=== PATIENT | male | born 1955 | race Caucasian/White ===

== ENCOUNTER 2017-08-12 03:23 | Inpatient (IN) | payer MEDICARE, OTHER ==
[2017-08-12 03:55] LABS: #Basophils 0.1 thou/uL (0.0-0.2); #Lymphocytes 1.3 thou/uL (1.20-3.40); #Monocytes 1.2 thou/uL (0.11-0.59); #Neutrophils 7.7 thou/uL (1.40-6.50); %Basophils 0.7 % (0.0-1.0); %Eosinophils 0.1 % (0.0-10.0); %Lymphocytes 12.6 % (21.0-51.0); %Neutrophils 74.6 % (42.0-75.0); Hemoglobin 14.8 g/dL (14.0-18.0); Mean Corpuscular HGB CONC 34.4 g/dL (32.0-36.0); Mean Corpuscular Hemoglobin 30.8 pg (27.0-31.0); Mean Corpuscular Volume 89.5 fl (80.0-94.0); Mean Platelet Volume 8.5 fL (7.4-10.4); Platelet Count 164 thou/uL (130-400); White Blood Cell (WBC) Count 10.3 thou/uL (4.8-10.8)
[2017-08-12 04:09] LABS: ALT (SGPT) 18 U/L (8-55); AST (SGOT) 22 U/L (5-34); Albumin 4.3 g/dL (3.4-4.8); Alkaline Phosphatase 64 U/L (40-150); Anion Gap 17 mmol/L (10-20); BUN (Urea Nitrogen) 17 mg/dL (8.4-25.7); Bilirubin, Total 0.4 mg/dL (0.2-1.2); Calc. Creatinine Clearance 0 mL/min (70-130); Calcium 9.7 mg/dL (7.8-10.44); Carbon Dioxide 24 mmol/L (23-31); Chloride 99 mmol/L (98-107); Estimated GFR-MDRD 71; Globulin 2.9 g/dL (2.4-3.5); Glucose 203 mg/dL (80-115); Potassium 3.9 mmol/L (3.5-5.1); Protein, Total 7.2 g/dL (5.8-8.1); Sodium 136 mmol/L (136-145)
[2017-08-12] MEDS ORDERED: Albuterol Sulfate 2.5 mg/3 ml Neb ONE ×2 (04:10)
[2017-08-12 04:29] LABS: Actual Bicarbonate (HCO3a) 22.7 mEq/L (22-26); Base Excess (BEa) -1.5 mEq/L (0 (+/-) 2.5); CO2 Tension 36.8 mmHg (35.0-45.0); Calcium, Ionized 1.2 mmol/L (1.12-1.30); Hematocrit-ABG 47.1 % (42.0-52.0); Hemoglobin (Hb) 14.7 g/dL (14.0-18.0); O2 Tension (PaO2) 113.6 mmHg (80.0-100.0); pH, Arterial 7.41 (7.35-7.45)
[2017-08-12 04:30] LABS: Analyzer IN Cardio ER; Puncture Site RRA
[2017-08-12] MEDS ORDERED: cefTRIAXone\\ROCEPHIN 2 GM in Sodium Chloride 0.9% 100 ML IVPB SCH (04:30)
[2017-08-12] MEDS ORDERED: Azithromycin 500 MG in Sodium Chloride 0.9% 250 ML 250 ML IVPB SCH (04:30)
[2017-08-12 05:23] LABS: CKMB 2.2 ng/mL (0-6.6); Troponin I 0.025 ng/mL (< 0.028)
[2017-08-12 07:19] LABS: Troponin I 0.034 ng/mL (< 0.028)
[2017-08-12] MEDS ORDERED: Dextrose 5% in Water 1,000 ML IV PRN (07:36)
[2017-08-12] MEDS ORDERED: Dextrose 50% Abboject 50 ML SYRINGE SLOW IVP PRN (07:36)
[2017-08-12] MEDS ORDERED: AZITHROMYCIN IVPB SCH (07:45)
[2017-08-12] MEDS ORDERED: methylPREDNISolone Sod Succ/PF 125 MG/2 ML VIAL IVP SCH (07:45)
--- NOTE | 2017-08-12 08:20 | RAD ---
TWO AP VIEWS OF THE CHEST: INDICATION: Dyspnea. COPD exacerbation. COMPARISON: PA and lateral of the chest dated 11/23/16. FINDINGS: COPD change is stable. No focal consolidation, pleural effusion, or pneumothorax is evident. No acu te osseous abnormality is evident. IMPRESSION: Stable chronic obstructive pulmonary disease change. POS: [facility]
[2017-08-12] MEDS ORDERED: Non-Formulary Item 1 EACH (Losartan Potassium [Cozaar] 1 TAB) PO SCH (09:00)
[2017-08-12] MEDS ORDERED: Metoprolol Tartrate 25 MG TAB ONE (10:44)
[2017-08-12] MEDS ORDERED: Clopidogrel Bisulfate 75 MG TAB ONE (10:44)
[2017-08-12 10:46] LABS: Troponin I 0.035 ng/mL (< 0.028)
[2017-08-12 14:41] VITALS: BMI 21.7
[2017-08-12] MEDS: Clopidogrel Bisulfate 75 MG TAB PO SCH (15:41)
[2017-08-12] MEDS: Insulin Detemir 100 UNITS/ML 20 UNITS in Pre-Filled Syringe 1 EACH SC SCH (15:41)
[2017-08-12] MEDS: Metoprolol Tartrate 25 MG TAB PO SCH ×2 (15:42→20:54)
[2017-08-12] MEDS: Losartan 25 MG TAB PO SCH (15:42)
[2017-08-12] MEDS: Albuterol Sulfate 1.25 MG/3 ML NEB NEB SCH ×4 (16:38→18:44)
[2017-08-12] MEDS: HumaLOG 300 UNITS/3 ML VIAL SC PRN (16:55)
[2017-08-12] MEDS ORDERED: traZODone HCl 50 MG TAB PO PRN (17:41)
[2017-08-12] MEDS ORDERED: Sodium Chloride 0.9% 1,000 ML IV SCH (17:45)
--- NOTE | 2017-08-12 18:35 | HP ---
PRIMARY CARE PHYSICIAN: [facility]. PRESENTING COMPLAINT: Shortness of breath. HISTORY OF PRESENT ILLNESS: A 62-year-old male with a past medical history of COPD, hypertension, hy perlipidemia, CAD status post stent, and type 2 diabetes mellitus, who presents to the emergency room with a 2-day history of shortness of breath, dry cough, fever, and chills. He denies chest pain, pa lpitations, PND, orthopnea, or lower extremity edema. He has no abdominal or urinary symptoms. He u ses inhalers or nebulizers at home without improvement, and due to progressively worsening shortness of breath, he decided to present to the hospital. ER COURSE: EMS gave him IV Solu-Medrol 125 mg, 2 grams of magnesium, 2 nebulized treatments en route to the hospital. At the emergency room, he was found to have significant shortness of breath and carlton lamas complained of fatigue and was then placed on BiPAP. He also received leuprolide therapy, cultu res were taken and he was started on azithromycin and ceftriaxone. Chest x-ray showed stable chronic pulmonary disease. LABORATORY DATA: CBC: Noncontributory. CMP also unremarkable apart from hyperglycemia. Troponin w ent from 0.025 and 0.035. ABG showed pH of 7.1, pO2 of 113, and pCO2 of 36.8 on BiPAP. PAST MEDICAL HISTORY: COPD, hypertension, hyperlipidemia, CAD status post stents, type 2 diabetes me llitus. PAST SURGICAL HISTORY: Status post cholecystectomy. FAMILY AND SOCIAL HISTORY: Does not smoke or drink alcohol or use illicit drugs. ALLERGIES: No known drug allergies. CODE STATUS: FULL RESUSCITATION. REVIEW OF SYSTEMS: CONSTITUTIONAL: Reports fever and chills. EYES: PERRLA, EOMI, sclerae are anicteric, no pallor. HEENT: Normocephalic and atraumatic. NECK: Supple. CARDIOVASCULAR: Denies chest pain. See HPI. RESPIRATORY: Positive for cough, shortness of breath. GENERAL: Positive for fever and chills. HEENT: Denies headaches, blurry vision. GI: Negative. MUSCULOSKELETAL: Negative. SKIN: Denies rash or skin changes. NEUROLOGIC: Denies headaches, blurry vision, loss of consciousness. Hematology: Denies easy bruising, abnormal blood culture. PHYSICAL EXAMINATION: CONSTITUTIONAL: Tachycardic. Otherwise, vital signs normal. HEENT: Normocephalic, atraumatic. EOMI, PERRLA, no nystagmus. NECK: Supple. RESPIRATORY: Mild wheezing diffusely. Diminished breath sounds, especially lower lung lobes. CV: Slight tachycardia, S1, S2. No murmurs, rubs, or gallops. ABDOMEN: Bowel sounds positive. Not tender, not distended. MUSCULOSKELETAL: Moves all extremities spontaneously. NEUROLOGY: Alert and oriented x3 (time, place, and person). No focal deficits. SKIN: No rashes or erythema. PSYCHIATRIC: Normal mood and affect. LABORATORY DATA/IMAGING/EKG: As above. ASSESSMENT/PLAN: 1. Acute hypoxic respiratory failure. Likely a combination of chronic obstructive pulmonary disease exacerbation and community-acquired pneumonia. He has been started on nebulizer therapy, oxygen sup plementation, broad spectrum antibiotics and parenteral steroids. We will monitor response. Follow up on cultures. 2. Hypertension. Stable. We will resume home medications. 3. Hyperlipidemia: We will also resume home medications. 4. Diabetes mellitus. Not at goal. The patient is hyperglycemic in the emergency room, likely exac erbated by recently administered parenteral steroids. His home regimen includes insulin detemir 24 u nits daily. We will restart that and placed on sliding scale insulin and monitor blood glucose befor e meals and at bedtime. Hypoglycemia protocol will also be instituted and he will be placed on a camille betic diet.
[2017-08-12] MEDS: Atorvastatin Calcium 20 MG TAB PO SCH ×2 (20:54→21:00)
[2017-08-13] MEDS: Azithromycin 500 MG, Admixture Fee 1 EACH in Sodium Chloride 0.9% 250 ML 250 ML IVPB SCH (05:58)
[2017-08-13] MEDS: cefTRIAXone\\ROCEPHIN 1 GM, Syringe 0.4 ML in Sterile Water 9.6 ML SLOW IVP SCH (05:58)
[2017-08-13] MEDS ORDERED: cefTRIAXone\\ROCEPHIN 1 GM in Sodium Chloride 0.9% 100 ML IVPB SCH (07:45)
[2017-08-13] MEDS ORDERED: predniSONE 20 MG TAB PO SCH (08:00)
[2017-08-13] MEDS: Losartan 25 MG TAB PO SCH (10:16)
[2017-08-13] MEDS: Metoprolol Tartrate 25 MG TAB PO SCH ×2 (10:18→21:00)
[2017-08-13] MEDS: Clopidogrel Bisulfate 75 MG TAB PO SCH (10:18)
[2017-08-13] MEDS: Insulin Detemir 100 UNITS/ML 20 UNITS in Pre-Filled Syringe 1 EACH SC SCH (10:19)
[2017-08-13] MEDS: HumaLOG 300 UNITS/3 ML VIAL SC PRN ×4 (10:20→22:16)
--- NOTE | 2017-08-13 11:17 | PDOC.PN ---
- Subjective Encounter Start Date: 08/13/17 Encounter Start Time: 11:16 Subjective: Feels much better today. Still occasional cough. No acute events. - Objective MAR Reviewed: Yes Vital Signs & Weight: Vital Signs (12 hours) Temp Pulse Resp BP Pulse Ox 08/13/17 08:41 95 08/13/17 08:40 82 12 08/13/17 08:00 97.9 F 82 26 H 124/71 98 08/13/17 04:00 99.1 F 93 18 132/76 96 08/13/17 01:57 96 16 97 Weight Weight 143 lb Result Diagrams: 08/12/17 03:46 08/12/17 03:46 Additional Labs: Accuchecks 08/13/17 08/12/17 08/12/17 05:38 19:48 15:59 POC Glucose 253 H 223 H 325 H Phys Exam - Physical Examination HEENT: PERRLA, moist MMs, sclera anicteric Neck: supple, full ROM Respiratory: no wheezing, clear to auscultation bilateral mild bibasilar rales Cardiovascular: RRR, no significant murmur, no rub Gastrointestinal: soft, non-tender, no distention, positive bowel sounds Musculoskeletal: no edema Neurological: non-focal, moves all 4 limbs Psychiatric: normal affect, A&O x 3 Skin: no rash, normal turgor Dx/Plan (1) Acute respiratory failure with hypoxia Code(s): J96.01 - ACUTE RESPIRATORY FAILURE WITH HYPOXIA Status: Resolved Comment: 2/2 combinaton COPD, PNA. Initially on Bipap and transitioned to NC. Being weaned off. Continue steroids, antibiotics, neb treatments. (2) CAD (coronary artery disease) Code(s): I25.10 - ATHSCL HEART DISEASE OF [place] CORONARY ARTERY W/O ANG PCTRS Status: Acute Qualifiers: Coronary Disease-Associated Artery/Lesion type: unspecified vessel or lesion type [place] vs. transplanted heart: [place] heart Associated angina: without angina Qualified Code(s): I25.10 - Atherosclerotic heart disease of [place] coronary artery without angina pectoris Plan: Stable, chest [pain free. Continue home regimen. Comment: Stable, chest [pain free. Continue home regimen. (3) COPD (chronic obstructive pulmonary disease) Status: Acute Qualifiers: COPD type: unspecified COPD Qualified Code(s): J44.9 - Chronic obstructive pulmonary disease, unspecified Plan: See problem #1. Comment: Presenting in exacerbayion. See problem #1 (4) HLD (hyperlipidemia) Code(s): E78.5 - HYPERLIPIDEMIA, UNSPECIFIED Status: Acute Qualifiers: Hyperlipidemia type: unspecified Qualified Code(s): E78.5 - Hyperlipidemia , unspecified Comment: Continued on Statins. (5) HTN (hypertension) Code(s): I10 - ESSENTIAL (PRIMARY) HYPERTENSION Status: Acute Qualifiers: Hypertension type: essential hypertension Qualified Code(s): I10 - Essential (primary) hypertension Comment: Fairly well controlled. Continued on home regimem (metoprolol, losartan ) (6) Pneumonia Code(s): J18.9 - PNEUMONIA, UNSPECIFIED ORGANISM Status: Acute Qualifiers: Pneumonia type: due to unspecified organism Laterality: unspecified laterality Lung location: unspecified part of lung Qualified Code(s): J18.9 - Pneumonia, unspecified organism Comment: Started on ceftriaxone, Azithromycin. Cultures negative to date. (7) Type 2 diabetes mellitus Status: Acute Qualifiers: Diabetes mellitus complication status: with hyperglycemia Diabetes mellitus detention insulin use: with detention use Qualified Code(s): E11.65 - Type 2 diabetes mellitus with hyperglycemia; Z79.4 - prison (current) use of insulin; Z79.4 - director long term care (current) use of insulin; Z79.4 - prison ( current) use of insulin; Z79.4 - director long term care (current) use of insulin Comment: Hyperglycemia likely worsened by parenteral antibiotics. Continued on long and short acting insulin/ - Plan cont current plan of care, continue antibiotics, respiratory therapy Wean off O2 -: Will discharge on PO steroids -: Discharge home tomorrow if continues to progress. * .
[2017-08-13] MEDS ORDERED: traMADol HCl 50 MG TAB PO PRN (17:28)
[2017-08-13] MEDS ORDERED: Lorazepam 1 MG TAB PO SCH (17:30)
[2017-08-13] MEDS: Atorvastatin Calcium 20 MG TAB PO SCH (21:00)
[2017-08-13] MEDS: Benzonatate 100 MG CAP PO PRN (21:04)
[2017-08-14] MEDS: cefTRIAXone\\ROCEPHIN 1 GM, Syringe 0.4 ML in Sterile Water 9.6 ML SLOW IVP SCH (05:47)
[2017-08-14] MEDS: Benzonatate 100 MG CAP PO PRN (05:47)
[2017-08-14 06:24] LABS: ALT (SGPT) 41 U/L (8-55); AST (SGOT) 59 U/L (5-34); Albumin 4.2 g/dL (3.4-4.8); Alkaline Phosphatase 65 U/L (40-150); Anion Gap 13 mmol/L (10-20); BUN (Urea Nitrogen) 29 mg/dL (8.4-25.7); Bilirubin, Total 0.3 mg/dL (0.2-1.2); Calc. Creatinine Clearance 79 mL/min (70-130); Calcium 9.5 mg/dL (7.8-10.44); Carbon Dioxide 26 mmol/L (23-31); Chloride 103 mmol/L (98-107); Estimated GFR-MDRD 87; Globulin 2.9 g/dL (2.4-3.5); Glucose 195 mg/dL (80-115); Potassium 4.9 mmol/L (3.5-5.1); Protein, Total 7.1 g/dL (5.8-8.1); Sodium 137 mmol/L (136-145)
[2017-08-14] MEDS ORDERED: Lorazepam 1 MG TAB PO SCH (06:30)
[2017-08-14] MEDS: Azithromycin 500 MG, Admixture Fee 1 EACH in Sodium Chloride 0.9% 250 ML 250 ML IVPB SCH (06:31)
[2017-08-14 06:40] LABS: Band 15 % (5-11); Hemoglobin 15.1 g/dL (14.0-18.0); Lymphocytes 5 % (21-51); MDiff Complete? YES; Mean Corpuscular HGB CONC 33.2 g/dL (32.0-36.0); Mean Corpuscular Hemoglobin 29.9 pg (27.0-31.0); Mean Corpuscular Volume 90.3 fl (80.0-94.0); Mean Platelet Volume 8.7 fL (7.4-10.4); Metamyelocyte 4 % (0-0); Monocytes 3 % (0-10); Neutrophil 73 % (42-75); PLT Morphology Comment Appears Adequate; Platelet Count 181 thou/uL (130-400); RBC Distribution Width 13.2 % (11.5-14.5); RBC Morphology Normal; Red Blood Cell (RBC) Count 5.06 mill/uL (4.70-6.10)
[2017-08-14] MEDS: HumaLOG 300 UNITS/3 ML VIAL SC PRN ×2 (06:41→12:35)
[2017-08-14 08:21] VITALS: BP 145/79; TEMP 97.7
[2017-08-14] MEDS ORDERED: Non-Formulary Item 1 EACH (Albuterol Sulfate [Proair Respiclick] 2 PUFF) IH PRN (09:18)
[2017-08-14] MEDS ORDERED: PROVENTIL INHALER 6.7 G (200 INHALATIONS) INH PRN (09:20)
[2017-08-14] MEDS ORDERED: Oseltamivir 75 MG CAP PO SCH ×2 (09:45→21:00)
[2017-08-14] MEDS: Insulin Detemir 100 UNITS/ML 20 UNITS in Pre-Filled Syringe 1 EACH SC SCH (09:59)
[2017-08-14] MEDS: Metoprolol Tartrate 25 MG TAB PO SCH (09:59)
[2017-08-14] MEDS: Clopidogrel Bisulfate 75 MG TAB PO SCH (09:59)
[2017-08-14] MEDS: Losartan 25 MG TAB PO SCH (09:59)
--- NOTE | 2017-08-14 17:50 | EKG ---
Test Reason : Blood Pressure : / mmHG Vent. Rate : 139 BPM Atrial Rate : 139 BPM P-R Int : 114 ms QRS Dur : 090 ms QT Int : 300 ms P-R-T Axes : 087 090 052 degrees QTc Int : 456 ms Sinus tachycardia Rightward axis Pulmonary disease pattern Nonspecific ST abnormality Abnormal ECG Confirmed by GABRIEL OSMAN D.O. ([id number]), editorial writer ULISSES NORRIS ([id number]) on 08/14/2017 5:48:24 PM Referred By: Confirmed By:GABRIEL OSMAN D.O.
--- NOTE | 2017-08-14 20:33 | DIS ---
DATE OF ADMISSION: 08/12/2017 DATE OF DISCHARGE: 08/14/2017 CONDITION AT DISCHARGE: Stable and improved. PRIMARY DIAGNOSES: Acute respiratory failure with hypoxia, influenza A, chronic pulmonary disease ex acerbation. SECONDARY DIAGNOSES: Type 2 diabetes mellitus with hyperglycemia, hypertension, hyperlipidemia, yvette nary artery disease, pneumonia. DISCHARGE MEDICATIONS: Albuterol sulfate inhaler 2.5 mg in 3 mL vial q.4 hours p.r.n., Tessalon Betzy es 100 mg p.o. q.4 hours p.r.n. for cough, albuterol sulfate inhaler 2 puffs inhaled q.4 hours p.r.n. for shortness of breath, cholecalciferol 2000 units p.o. daily, clopidogrel 75 mg p.o. daily, insuli n detemir 25 units subcu daily, levofloxacin 750 mg daily, loratadine 10 mg p.o. daily, lorazepam 0.5 mg p.o. q.4 hours p.r.n. for anxiety, losartan 100 mg p.o. daily, metoprolol tartrate 25 mg p.o. b.i .d., oseltamivir 75 mg p.o. b.i.d., prednisone 40 mg p.o. q.a.m. daily, simvastatin 40 mg p.o. at bedtime, tiotropium 2 puffs inhaled daily. HISTORY OF PRESENT ILLNESS: A 62-year-old male with a past medical history as above, who presented t o the emergency room with a 2-day history of shortness of breath, dry cough, fevers, and chills. He denies chest pain, palpitations, PND, orthopnea, lower extremity edema. He had no abdominal or urina ry symptoms. He used his inhalers and nebulizers at home without improvement and due to his progress ively worsening respiratory dysfunction, he decided to present to the emergency room. At the ER, he received Solu-Medrol, magnesium, nebulizer treatment. He was also started on IV ceftriaxone and azit hromycin for possible superimposed pneumonia. Labs revealed influenza A antigen positive. Chest x-r ay shows stable chronic pulmonary disease. He also had an ABG which showed a pH of 7.1, pO2 of 113, and pCO2 of 36.8 which was after he was started on BiPAP due to his acute hypoxic respiratory failure . HOSPITAL COURSE: During his stay, he improved with scheduled and p.r.n. nebulizer treatments, IV Qian u-Medrol, and broad-spectrum antibiotics. He was also started on oseltamivir for influenza A. He wa s eventually weaned from BiPAP to nasal cannula and finally to room air. He improved tremendously be fore discharge and was discharged without incident. CONSULTATIONS: None. PROCEDURES: Chest x-ray shows stable chronic obstructive pulmonary disease. DIET: Heart healthy and diabetic. ACTIVITY: To resume as tolerated. Health care goals. FOLLOWUP: The patient is to follow up with his primary care physician within 1 week of discharge. PHYSICAL EXAMINATION: He was examined on the day of discharge: VITAL SIGNS: Stable. HEENT: PERRLA. Moist mucous membranes. Sclerae are anicteric. NECK: Supple with full range of movement. RESPIRATORY: No wheezing. Clear to auscultation bilaterally. CARDIOVASCULAR: Regular rate and rhythm with no significant murmur or rubs. GASTROINTESTINAL: Soft, tender. No distention with positive bowel sounds. MUSCULOSKELETAL: No edema. NEUROLOGIC: Alert and well oriented to time, place, and person. Moves all extremities spontaneously and had no focal deficit. PSYCHIATRIC: Normal affect and mood. SKIN: No rash with normal turgor. DISPOSITION: Discharged to home. Total time of discharge is 65 minutes including chart review and documentation.
== END 2017-08-14 12:59 | disposition home or self-care (01) | DRG 189 ==
LOC: ERS 03:23 → ERHOLD 05:21 → 2NO 13:58
PROVIDERS: ADMIT Internal Medicine Infectious Disease; ATTEND Internal Medicine Infectious Disease
PROC: 5A09357 Assistance with Respiratory Ventilation, Less than 24 Consecutive Hours, Continuous Positive Airway Pressure (ICD-10-PCS; principal; 2017-08-12)
DX: J96.01 Acute respiratory failure with hypoxia (principal); J10.00 Influenza due to other identified influenza virus with unspecified type of pneumonia; J18.9 Pneumonia, unspecified organism; J44.0 Chronic obstructive pulmonary disease with (acute) lower respiratory infection; J44.1 Chronic obstructive pulmonary disease with (acute) exacerbation; E11.65 Type 2 diabetes mellitus with hyperglycemia; I10 Essential (primary) hypertension; E78.5 Hyperlipidemia, unspecified; I25.10 Atherosclerotic heart disease of native coronary artery without angina pectoris; Z79.4 Long term (current) use of insulin
CPT/HCPCS: 36415; 36416; 71045; 80053; 82553; 82805; 83880; 84484; 85025; 87040; 93005; 94640; 94660; 96365; 96367; 96372; A4216; J0456; J0696; J1815; J2920; J7050; J7611; J7620

== ENCOUNTER 2017-12-22 13:22 | Outpatient (CLI) | payer OTHER | END 2017-12-22 13:23 | disposition home or self-care (01) | LOC: BICMRI 13:22 | PROVIDERS: ATTEND Orthopaedic Surgery Hand Surgery | DX: M24.531 Contracture, right wrist (principal); M65.9 Synovitis and tenosynovitis, unspecified; M19.031 Primary osteoarthritis, right wrist ==

== ENCOUNTER 2018-07-20 01:20 | Inpatient (IN) | payer MEDICARE, OTHER ==
[2018-07-20] MEDS ORDERED: Lorazepam 2 MG/ML VIAL ONE ×2 (01:32→04:32)
[2018-07-20] MEDS ORDERED: Magnesium 2 GM/50 ML BAG (IN WATER) ONE (01:40)
[2018-07-20] MEDS ORDERED: methylPREDNISolone Sod Succ/PF 125 MG/2 ML VIAL ONE (01:40)
[2018-07-20 01:53] LABS: #Basophils 0.1 thou/uL (0.0-0.2); #Lymphocytes 2.5 thou/uL (1.20-3.40); #Monocytes 1.3 thou/uL (0.11-0.59); #Neutrophils 10.8 thou/uL (1.40-6.50); %Basophils 0.5 % (0.0-1.0); %Eosinophils 0.2 % (0.0-10.0); %Lymphocytes 17.3 % (21.0-51.0); %Monocytes 8.9 % (0.0-10.0); %Neutrophils 73.1 % (42.0-75.0); Hemoglobin 14.5 g/dL (14.0-18.0); Mean Corpuscular HGB CONC 33.7 g/dL (32.0-36.0); Mean Corpuscular Hemoglobin 29.3 pg (27.0-31.0); Mean Corpuscular Volume 86.9 fL (78.0-98.0); Mean Platelet Volume 8.1 fL (7.4-10.4); Platelet Count 240 thou/uL (130-400); RBC Distribution Width 13.1 % (11.5-14.5); Red Blood Cell (RBC) Count 4.95 mill/uL (4.70-6.10); White Blood Cell (WBC) Count 14.7 thou/uL (4.8-10.8)
[2018-07-20 02:13] LABS: ALT (SGPT) 29 U/L (8-55); AST (SGOT) 18 U/L (5-34); Albumin 4.3 g/dL (3.4-4.8); Alkaline Phosphatase 94 U/L (40-150); Anion Gap 19 mmol/L (10-20); BUN (Urea Nitrogen) 16 mg/dL (8.4-25.7); Bilirubin, Total 0.7 mg/dL (0.2-1.2); Calc. Creatinine Clearance 0 mL/min (70-130); Calcium 10.7 mg/dL (7.8-10.44); Carbon Dioxide 23 mmol/L (23-31); Chloride 98 mmol/L (98-107); Estimated GFR-MDRD 64; Globulin 3.9 g/dL (2.4-3.5); Glucose 368 mg/dL (80-115); Magnesium 1.9 mg/dL (1.6-2.6); Potassium 4.2 mmol/L (3.5-5.1); Protein, Total 8.2 g/dL (5.8-8.1); Sodium 136 mmol/L (136-145)
[2018-07-20 02:32] LABS: Bilirubin Negative (Negative); Blood, Urine Negative (Negative); Clarity CLEAR (Clear); Glucose, Urine (Dipstick) >=1000 mg/dL (Negative); Leukocyte Negative (Negative); Nitrite Negative (Negative); Protein, Urine (Dipstick) Negative (Neg-Trace); Specific Gravity, Urine 1.024 (1.002-1.036); pH, Urine 6.5 (5.0-9.0)
[2018-07-20 04:48] LABS: Actual Bicarbonate (HCO3a) 19.4 mEq/L (22-28); CO2 Tension 32.9 mmHg (35.0-45.0); O2 Tension (PaO2) 78.5 mmHg (> 80.0); pH, Arterial 7.39 (7.35-7.45)
[2018-07-20 04:49] LABS: Base Excess (BEa) -4.6 mEq/L (-2.0 to +3.0)
[2018-07-20 04:50] LABS: Hemoglobin (Hb) 13.3 g/dL (14.0-18.0)
[2018-07-20 04:51] LABS: Carboxyhemoglobin (COHb) 0.1 gm% (0.0-3.0)
[2018-07-20 04:52] LABS: Analyzer IN Cardio ER; Calcium, Ionized 1.11 mmol/L (1.12-1.30); Potassium - ABG Lab 4.11 mmol/L (3.70-5.30); Puncture Site LBA
[2018-07-20 04:53] LABS: ALV-art Gradient 30.105 (0-20)
--- NOTE | 2018-07-20 06:12 | HP ---
PRIMARY CARE PHYSICIAN: At [facility]. TIME OF SERVICE: 0430 CHIEF COMPLAINT: Shortness of breath. HISTORY OF PRESENT ILLNESS: Mr. Terrazas is a 63-year-old gentleman with history of COPD, coronary artery disease, diabetes, and hypertension, presents to the emergency department for 2-day history of worsening shortness of breath. States he feels like he cannot get air in and out. He has had some wheezing and he has tried nebulizer at home without any improvement. He has some cough with scant sputum production. Fevers from 101 to 101.9 over the last 48 hours. No chills or rigors. No nausea, vomiting, diarrhea, or constipation. No chest pain. Per workup in the ER, showed him to have elevated lactic acid of 3.0, elevated white blood cell count, tachycardia at 126, and met sepsis criteria. We were subsequently called for admit. PAST MEDICAL HISTORY: 1. Coronary artery disease, status post VT in 2000. 2. COPD/asthma. 3. Diabetes mellitus type 2. 4. Hypertension. PAST SURGICAL HISTORY: 1. Cholecystectomy. 2. PTCA with stents x5 in the past. HOME MEDICATIONS: 1. Albuterol MDI. 2. Albuterol nebulizer p.r.n. 3. Plavix 75 mg daily. 4. Losartan 100 mg daily. 5. Symbicort 160/4.5 two puffs b.i.d. 6. Metoprolol tartrate 50 mg p.o. b.i.d. 7. Zocor 40 mg p.o. at bedtime. 8. Glipizide 5 mg p.o. b.i.d. 9. Nifedipine 30 mg daily. ALLERGIES: NKDA. FAMILY HISTORY: Negative for clotting or bleeding disorder, no immune dysfunction. SOCIAL HISTORY: Long-standing history of smoking, but quit many years ago. He is , monogamous. accompanies him. REVIEW OF SYSTEMS: All systems reviewed and negative except as stated as per HPI. PHYSICAL EXAMINATION: VITAL SIGNS: Temperature current 98.2, pulse 126, blood pressure 148/80, respiratory rate 24, satting 99% on room air, though he is currently on 2 L. GENERAL: He is awake, he is alert, and he is oriented x3. Well-developed, well-nourished white male, appears to be in moderate respiratory distress. HEENT: Normocephalic, atraumatic. Pupils equal, round, and reactive to light bilaterally. Mucous membranes moist. No visible lesion. No thrush. NECK: Supple. He is using accessory muscles for breathing. No JVD or thyromegaly. Normal carotid upstroke. LUNGS: Have poor air movement, but no crackles and no wheezes heard. CARDIOVASCULAR: He is tachycardic, but regular. Normal S1, S2. No S3 or S4. No audible murmurs. ABDOMEN: Soft, nontender, nondistended. No masses. No organomegaly. EXTREMITIES: No cyanosis. No clubbing. Trace pedal edema. SKIN: Warm, moist, and well perfused. He has no rashes or lesions. NEUROLOGIC: Cranial nerves 2 through 12 are grossly intact. He has no focal neurologic deficits, normal speech and 5/5 strength in all 4 extremities. LABORATORY DATA: Sodium 136, potassium 4.2, chloride 98, bicarb 23, BUN 16, creatinine 1.0, glucose of 308, and magnesium 1.9. Liver functions completely within normal limits. CBC showed a white count of 14.7, hemoglobin is 14.5, hematocrit 43.0, and platelet count is 240,000. Lactic acid 3.0. D-dimer is 0.85. Troponin I negative and undetectable. Urinalysis was clear. Flu A and B were negative. ASSESSMENT AND PLAN: 1. Acute exacerbation of chronic obstructive pulmonary disease. 2. Acute on chronic hypoxic respiratory failure. 3. Coronary artery disease without angina. 4. Diabetes mellitus type 2, uncontrolled. 5. Essential hypertension. We will continue his home medications. We will use insulin sliding scale for correction control. We will use nebulizer treatment with scheduled DuoNebs and p.r.n. al[facility]er[facility] q.[facility]. We will use Solu-Medrol 40 mg IV q.6 hours and we will have Pulmonary Critical Care followup. Job ID: [id number]
[2018-07-20 06:21] VITALS: BMI 22.9
[2018-07-20] MEDS ORDERED: Acetaminophen 650 MG Suppository PR PRN (07:18)
[2018-07-20] MEDS ORDERED: Acetaminophen 325 MG TAB PO PRN (07:18)
[2018-07-20] MEDS ORDERED: Ondansetron PF 4 MG/2 ML Vial IVP PRN (07:18)
[2018-07-20] MEDS ORDERED: Benzonatate 100 MG CAP PO PRN (07:18)
[2018-07-20] MEDS ORDERED: Ondansetron ODT 4 MG TAB PO PRN (07:18)
[2018-07-20] MEDS ORDERED: Albuterol Sulfate 2.5 mg/3 ml Neb EZPAP PRN (07:18)
[2018-07-20] MEDS: Sodium Chloride 0.45% 1,000 ML IV SCH ×2 (07:35→15:04)
--- NOTE | 2018-07-20 07:51 | RAD ---
FRONTAL RADIOGRAPH CHEST: Date: 07/20/18 COMPARISON: 08/12/17. HISTORY: COPD, dyspnea. FINDINGS: Stable increased linear interstitial density with pulmonary hyperinflation. No pneumothorax, pleural fluid, focal consolidation, or alveolar edema. IMPRESSION: Stable chronic findings as above, consistent with the provided history of COPD. POS: [facility]
--- NOTE | 2018-07-20 08:57 | CT ---
PRELIMINARY REPORT/[facility]/EMERGENTY AFTER-HOURS PROCEDURE CT Angiography Chest With Contrast EXAM DATE/TIME: 07/20/2018 2:29 AM CLINICAL HISTORY: 63 years old, male; Signs and symptoms; Dyspnea and shortness of breath; Prior surgery; Patient HX: M 63 w pmh of copd, diabetes presents to the ed from home for evaluation of worsening dyspnea x4 days. PT. Reports measuring fever today at 101. PT. Denies any chest pain, hemoptysis. PT. Also reports having some abdominal "bloating", stating that he feels like it "places pressure on my lungs" . PT. Reports having 5+ cardiac stents in place. Reported that PT. Had a heart attack in 2000 TECHNIQUE: Axial computed tomographic angiography images of the chest with intravenous contrast using CT angiogr aphy protocol. MIP reconstructed images were created and reviewed. COMPARISON: No relevant prior studies available. FINDINGS: Pulmonary arteries: Normal. No pulmonary emboli. 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 No aneurysm or dissection. Other arteries: Normal variant origin of the left vertebral artery from the aortic arch. Lungs: Poorly defined infiltrate versus scarring posterior left lung base. Centrilobular emphysema ch anges throughout both lungs, including cystic changes in the upper lungs and subpleural scarring and fibrosis. Pleural space: Normal. No pneumothorax. No pleural effusion. Heart: Normal. No cardiomegaly. No pericardial effusion. Lymph nodes: Unremarkable. No enlarged lymph nodes. Bones/joints: Unremarkable. No acute fracture. Soft tissues: Unremarkable. IMPRESSION: Emphysema with probable scarring at the left lung base. No acute abnormalities. Thank you for allowing us to participate in the care of your patient. Dictated and Authenticated by: Betito Clemente MD 07/20/2018 3:26 AM Central Time ([place] & [place]) FINAL REPORT CT ARTERIOGRAM CHEST WITH IV CONTRAST AND 3D MIP IMAGING PERFORMED ON AN EMERGENCY BASIS: Date: 07/20/18 Time: 0230 hours HISTORY: Chest pain. Dyspnea. FINDINGS: Findings agree with the preliminary report by Christine. No CT evidence of pulmonary embolus. Emphysematou s changes are apparent. POS: [facility]
[2018-07-20] MEDS ORDERED: INSULIN DETEMIR SQ SCH (09:00)
[2018-07-20] MEDS: Losartan 25 MG TAB PO SCH (09:27)
[2018-07-20] MEDS: Famotidine 20 MG TAB PO SCH ×2 (09:27→20:11)
[2018-07-20] MEDS: Clopidogrel Bisulfate 75 MG TAB PO SCH (09:27)
[2018-07-20] MEDS: Metoprolol Tartrate 25 MG TAB PO SCH ×2 (09:28→20:11)
[2018-07-20] MEDS ORDERED: HumaLOG 300 UNITS/3 ML VIAL SC PRN (10:34)
[2018-07-20] MEDS: HumaLOG 300 UNITS/3 ML VIAL SC PRN ×2 (11:23→16:42)
[2018-07-20] MEDS: Insulin Glargine 24 UNITS in Pre-Filled Syringe 1 EACH SC SCH (11:23)
--- NOTE | 2018-07-20 15:00 | PDOC.PN ---
- Subjective Encounter Start Date: 07/20/18 Encounter Start Time: 15:00 Subjective: f/u for COPD exacerbation on current Levaquin/Solumedrol/O2. -: States overall improved but still has wheezing and tightness. - Objective Resuscitation Status - Order Detail: 07/20/18 03:54 Resuscitation Status Routine Resuscitation Status: FULL: Full Resuscitation MAR Reviewed: Yes Vital Signs & Weight: Vital Signs (12 hours) Temp Pulse Resp BP BP Pulse Ox 07/20/18 13:54 92 18 100 07/20/18 11:26 97.9 F 101 H 20 129/74 99 07/20/18 10:21 110 H 22 H 99 07/20/18 08:30 113 H 18 100 07/20/18 07:27 97.6 F 122 H 24 H 127/73 97 07/20/18 05:45 97.9 F 120 H 18 123/70 97 Weight Weight 151 lb 1.6 oz Result Diagrams: 07/20/18 01:47 07/20/18 01:47 Additional Labs: Accuchecks 07/20/18 11:11 POC Glucose 508 H Microbiology 07/20/18 02:21 Nasal swab Influenza Types A,B Direct EIA - Final 07/20/18 02:20 Urine voided Urine Culture - Preliminary Laboratory Tests 07/20/18 07/20/18 07/20/18 01:47 01:47 05:19 Lactic Acid 3.0 H 3.0 H B-Natriuretic Peptide 16.0 Radiology Reviewed by me: Yes (CTA chest - emphysematous changes bilat) EKG Reviewed by me: Yes (Tele - SR) Phys Exam - Physical Examination Constitutional: NAD HEENT: PERRLA, sclera anicteric, oral pharynx no lesions Neck: no nodes, no JVD, supple, full ROM minimal air flow in bilat mejía, exp wheezing S1, S2, distant heart sounds Cardiovascular: RRR, no significant murmur, no rub, gallop Gastrointestinal: soft, non-tender, no distention, positive bowel sounds Musculoskeletal: no edema, pulses present Neurological: normal sensation, moves all 4 limbs Psychiatric: A&O x 3 Skin: normal turgor, cap refill <2 seconds Dx/Plan (1) Acute and chronic respiratory failure with hypoxia Code(s): J96.21 - ACUTE AND CHRONIC RESPIRATORY FAILURE WITH HYPOXIA Status: Acute Comment: Secondary to #1, see below for mgmt (2) COPD with acute exacerbation Code(s): J44.1 - CHRONIC OBSTRUCTIVE PULMONARY DISEASE W (ACUTE) EXACERBATION Status: Acute Comment: Continue Solumedrol, Levaquin, Duonebs, Pulmicort and Spiriva (3) Type 2 diabetes mellitus Status: Chronic Qualifiers: Diabetes mellitus intermodal truck driver insulin use: with skilled nursing use Diabetes mellitus complication status: with hyperglycemia Qualified Code(s): E11.65 - Type 2 diabetes mellitus with hyperglycemia; Z79.4 - intermodal truck driver (current) use of insulin; Z79.4 - [facility] (current) use of insulin; Z79.4 - [facility] (current ) use of insulin; Z79.4 - [facility] (current) use of insulin Comment: ISS, Resume home insulin regimen, serial accuchecks (4) CAD (coronary artery disease) Code(s): I25.10 - ATHSCL HEART DISEASE OF [place] CORONARY ARTERY W/O ANG PCTRS Status: Chronic Qualifiers: Coronary Disease-Associated Artery/Lesion type: unspecified vessel or lesion type [place] vs. transplanted heart: [place] heart Associated angina: without angina Qualified Code(s): I25.10 - Atherosclerotic heart disease of [place] coronary artery without angina pectoris Comment: Stable, med mgmt - Plan continue antibiotics, respiratory therapy, out of bed/ambulate, DVT proph w/SCDs Stable overall -: Continue pulm support -: Add Spiriva and Pulmicort -: Continue Solumedrol -: O2 support to maintain sats >90% * .
[2018-07-20] MEDS ORDERED: Guaifenesin DM 100-10/5 ML UDCUP PO PRN (15:11)
[2018-07-20] MEDS ORDERED: Sodium Chloride 0.45% 1,000 ML IV SCH (15:12)
[2018-07-20] MEDS ORDERED: HumaLOG 300 UNITS/3 ML VIAL SC SCH (19:00)
[2018-07-20] MEDS: Budesonide 0.5 MG/2 ML NEB NEB SCH (19:25)
[2018-07-20 19:26] LABS: Glucose Accucheck Confirmation 398 mg/dl (80-115)
[2018-07-20] MEDS: glipiZIDE 5 MG TAB PO SCH (20:12)
[2018-07-20] MEDS ORDERED: Atorvastatin Calcium 20 MG TAB PO SCH (21:00)
[2018-07-21] MEDS: Budesonide 0.5 MG/2 ML NEB NEB SCH (06:19)
[2018-07-21 06:20] LABS: Anion Gap 14 mmol/L (10-20); BUN (Urea Nitrogen) 15 mg/dL (8.4-25.7); Calc. Creatinine Clearance 88 mL/min (70-130); Calcium 9.8 mg/dL (7.8-10.44); Carbon Dioxide 23 mmol/L (23-31); Chloride 104 mmol/L (98-107); Estimated GFR-MDRD Greater than 90; Glucose 313 mg/dL (80-115); Potassium 4.2 mmol/L (3.5-5.1); Sodium 137 mmol/L (136-145)
[2018-07-21 06:29] LABS: Band 2 % (5-11); Hemoglobin 12.4 g/dL (14.0-18.0); Hypochromia SLIGHT = 6-15 cells (100X) (0-5/hpf); Lymphocytes 8 % (21-51); MDiff Complete? YES; Mean Corpuscular HGB CONC 33.8 g/dL (32.0-36.0); Mean Corpuscular Hemoglobin 29.3 pg (27.0-31.0); Mean Corpuscular Volume 86.8 fL (78.0-98.0); Mean Platelet Volume 8.1 fL (7.4-10.4); Monocytes 2 % (0-10); Neutrophil 88 % (42-75); PLT Morphology Comment Appears Adequate; Platelet Count 229 thou/uL (130-400); RBC Distribution Width 13.1 % (11.5-14.5); Red Blood Cell (RBC) Count 4.24 mill/uL (4.70-6.10); White Blood Cell (WBC) Count 14.9 thou/uL (4.8-10.8)
[2018-07-21] MEDS: Insulin Glargine 24 UNITS in Pre-Filled Syringe 1 EACH SC SCH (08:04)
[2018-07-21] MEDS: glipiZIDE 5 MG TAB PO SCH (08:04)
[2018-07-21] MEDS: Clopidogrel Bisulfate 75 MG TAB PO SCH (08:04)
[2018-07-21] MEDS: Famotidine 20 MG TAB PO SCH (08:04)
[2018-07-21] MEDS: Losartan 25 MG TAB PO SCH (08:05)
[2018-07-21] MEDS: Metoprolol Tartrate 25 MG TAB PO SCH (08:05)
[2018-07-21] MEDS ORDERED: Spiriva 18 MCG CAP (Box of 5 Caps) INH SCH (09:00)
[2018-07-21] MEDS: HumaLOG 300 UNITS/3 ML VIAL SC PRN ×2 (11:57→17:41)
--- NOTE | 2018-07-21 16:38 | PDOC.PN ---
- Subjective Encounter Start Date: 07/21/18 Encounter Start Time: 16:35 Subjective: f/u for acute/chronic hypoxic resp failure and COPD exacerbation. Feels -: better overall. - Objective Resuscitation Status - Order Detail: 07/20/18 03:54 Resuscitation Status Routine Resuscitation Status: FULL: Full Resuscitation MAR Reviewed: Yes Vital Signs & Weight: Vital Signs (12 hours) Temp Pulse Resp BP BP Pulse Ox 07/21/18 13:35 98 18 99 07/21/18 11:24 97.6 F 96 18 149/76 H 95 07/21/18 09:38 95 18 99 07/21/18 08:03 96 07/21/18 08:00 98 F 112 H 18 142/86 H 96 07/21/18 06:19 98 18 100 Weight Weight 151 lb 1.6 oz I&O: 07/20/18 07/21/18 07/22/18 06:59 06:59 06:59 Intake Total 2891 Output Total 2675 Balance 216 Result Diagrams: 07/21/18 05:44 07/21/18 05:44 Additional Labs: Accuchecks 07/21/18 07/21/18 07/20/18 11:02 06:13 21:29 POC Glucose 514 H 297 H 351 H 07/20/18 07/20/18 18:31 16:33 POC Glucose Greater than 550 H* 490 H Microbiology 07/20/18 02:21 Nasal swab Influenza Types A,B Direct EIA - Final 07/20/18 02:20 Urine voided Urine Culture - Final Beta-hemolytic Streptococcus 07/20/18 02:20 Urine voided Urine Culture - Preliminary 07/20/18 01:47 Venous blood - Left Hand Blood Culture - Preliminary Specimen has been received and culture in progress. No Growth to date. 07/20/18 01:37 Venous blood - Left Arm Blood Culture - Preliminary Specimen has been received and culture in progress. No Growth to date. Laboratory Tests 07/20/18 07/20/18 07/20/18 01:47 01:47 01:47 WBC 14.7 H Lactic Acid 3.0 H B-Natriuretic Peptide 16.0 07/20/18 05:19 WBC Lactic Acid 3.0 H B-Natriuretic Peptide EKG Reviewed by me: Yes (Tele - Sinus tachycardia in low-100's) Phys Exam - Physical Examination Constitutional: NAD HEENT: PERRLA, sclera anicteric, oral pharynx no lesions Neck: no nodes, no JVD, supple, full ROM diminished bilaterally, occ exp wheezing S1, S2 Cardiovascular: RRR, no significant murmur, no rub, gallop Gastrointestinal: soft, non-tender, no distention, positive bowel sounds Musculoskeletal: no edema, pulses present Neurological: normal sensation, moves all 4 limbs Psychiatric: A&O x 3 Skin: normal turgor, cap refill <2 seconds Dx/Plan (1) Acute and chronic respiratory failure with hypoxia Code(s): J96.21 - ACUTE AND CHRONIC RESPIRATORY FAILURE WITH HYPOXIA Status: Acute Comment: Secondary to #1, see below for mgmt (2) COPD with acute exacerbation Code(s): J44.1 - CHRONIC OBSTRUCTIVE PULMONARY DISEASE W (ACUTE) EXACERBATION Status: Acute Comment: Continue Solumedrol, Levaquin, Duonebs, Pulmicort and Spiriva (3) Type 2 diabetes mellitus Status: Chronic Qualifiers: Diabetes mellitus assisted insulin use: with assisted use Diabetes mellitus complication status: with hyperglycemia Qualified Code(s): E11.65 - Type 2 diabetes mellitus with hyperglycemia; Z79.4 - [facility] (current) use of insulin; Z79.4 - superintendent terminal (current) use of insulin; Z79.4 - superintendent terminal (current ) use of insulin; Z79.4 - superintendent terminal (current) use of insulin Comment: ISS, Resume home insulin regimen, serial accuchecks (4) CAD (coronary artery disease) Code(s): I25.10 - ATHSCL HEART DISEASE OF [place] CORONARY ARTERY W/O ANG PCTRS Status: Chronic Qualifiers: Coronary Disease-Associated Artery/Lesion type: unspecified vessel or lesion type [place] vs. transplanted heart: [place] heart Associated angina: without angina Qualified Code(s): I25.10 - Atherosclerotic heart disease of [place] coronary artery without angina pectoris Comment: Stable, med mgmt - Plan * .
[2018-07-21 17:40] VITALS: BP 156/81; TEMP 97.8
[2018-07-21] MEDS ORDERED: Budesonide 0.5 MG/2 ML NEB NEB SCH (18:30)
--- NOTE | 2018-07-22 03:25 | DIS ---
DATE OF ADMISSION: 07/20/2018 DATE OF DISCHARGE: 07/21/2018 DISCHARGE DIAGNOSES: 1. Acute on chronic hypoxic respiratory failure secondary to #2. 2. Acute chronic obstructive pulmonary disease exacerbation, improved. 3. Diabetes mellitus type 2, insulin requiring, labile secondary to steroids. 4. Coronary artery disease, chronic and stable. CONSULTATIONS: None. PERTINENT LAB AND X-RAY FINDINGS: Lactic acid level 3.0. Calcium 10.7. Magnesium 1.9. BNP 16. CBC showed a white blood cell count ranged between 14.7 to 14.9. Blood cultures x2 dated 07/20/2018 showed no growth to date. Urine culture dated 07/20/2018 showed 10,000 to 25,000 colonies of beta-hemolytic Streptococcus species and mixed skin sandra. Influenza A and B antigen dated 07/20/[address] angiogram of the chest dated 07/20/2018 showed extensive emphysematous changes bilaterally. No evidence for pulmonary embolus. Scarring of the left lung base noted. Portable chest x-ray dated 07/20/2018 showed chronic changes in bilateral lung mejía with hyperinflation consistent with chronic obstructive pulmonary disease. HOSPITAL COURSE: The patient was admitted to the telemetry unit after initially presenting with increased shortness of breath in the context of known chronic obstructive pulmonary disease and chronic hypoxic respiratory failure. The patient was treated for COPD exacerbation with IV Solu-Medrol, bronchodilator therapy, and Levaquin. The patient clinically improved with oxygen supplementation as well as aggressive pulmonary supportive management. The patient attained baseline respiratory function in approximately 36 hours. I examined the patient at the time of discharge and discussed followup instructions. The patient overall clinically stable and ready for discharge on 07/21/2018. DISCHARGE MEDICATIONS: 1. Albuterol sulfate nebulized solution 3 mL nebulized q.4 hours p.r.n. 2. ProAir RespiClick two puffs inhaled q.4 hours p.r.n. 3. Pulmicort nebulized solution 4.5 mcg p.o. b.i.d. 4. Plavix 75 mg p.o. daily. 5. Glipizide 10 mg p.o. b.i.d. 6. Levemir 20 units subcutaneously daily. 7. Cozaar 100 mg p.o. daily. 8. Metoprolol tartrate 50 mg p.o. b.i.d. 9. Simvastatin 40 mg p.o. at bedtime. 10. Spiriva HandiHaler 18 mcg two puffs inhaled daily. 11. Levaquin 500 mg p.o. daily x7 days. 12. Prednisone 10 mg two tablets p.o. b.i.d. x3 days, followed by 3 tablets p.o. daily x3 days, followed by 2 tablets p.o. daily x3 days, followed by 1 tablet p.o. daily x3 days. FOLLOWUP: The patient is to follow up at the [facility] in [place] within 7 days of discharge. CONDITION ON DISCHARGE: Fair. ACTIVITY: Ad-suzie. DIET: ADA and heart healthy. CODE STATUS: Full. DISPOSITION: Home, 07/21/2018. TIME SPENT: Total time preparing and coordinating discharge is 31 minutes. Job ID: [id number]
== END 2018-07-21 18:21 | disposition home or self-care (01) | DRG 190 ==
LOC: ERS 01:20 → 2NO 04:26
PROVIDERS: ADMIT Internal Medicine Infectious Disease; ATTEND Internal Medicine Infectious Disease
DX: J44.1 Chronic obstructive pulmonary disease with (acute) exacerbation (principal); J96.21 Acute and chronic respiratory failure with hypoxia; I25.10 Atherosclerotic heart disease of native coronary artery without angina pectoris; E86.0 Dehydration; I10 Essential (primary) hypertension; E11.65 Type 2 diabetes mellitus with hyperglycemia; T38.0X5A Adverse effect of glucocorticoids and synthetic analogues, initial encounter; I25.2 Old myocardial infarction; Z90.49 Acquired absence of other specified parts of digestive tract; Z79.02 Long term (current) use of antithrombotics/antiplatelets; Z79.899 Other long term (current) drug therapy; Z87.891 Personal history of nicotine dependence; Z79.4 Long term (current) use of insulin; Z95.5 Presence of coronary angioplasty implant and graft
CPT/HCPCS: 36415; 36416; 71045; 71275; 80048; 80053; 81003; 82805; 83605; 83735; 83880; 84484; 85025; 85379; 87040; 87086; 87804; 93005; 94640; 94760; 96361; 96365; 96375; 96376; J1956; J2060; J2920; J2930; J7620; J7626

== ENCOUNTER 2019-01-25 21:08 | Emergency (ER) | payer OTHER, MEDICARE ==
[2019-01-25 22:13] LABS: #Basophils 0.1 thou/uL (0.0-0.2); #Eosinphils 0.1 thou/uL (0.0-0.7); #Lymphocytes 1.8 thou/uL (1.20-3.40); #Monocytes 0.6 thou/uL (0.11-0.59); #Neutrophils 6.1 thou/uL (1.40-6.50); %Basophils 0.8 % (0.0-1.0); %Eosinophils 1.5 % (0.0-10.0); %Lymphocytes 20.9 % (21.0-51.0); %Neutrophils 69.8 % (42.0-75.0); Mean Corpuscular HGB CONC 32.3 g/dL (32.0-36.0); Mean Corpuscular Hemoglobin 28.1 pg (27.0-31.0); Mean Corpuscular Volume 86.9 fL (78.0-98.0); Mean Platelet Volume 9.4 fL (7.4-10.4); Platelet Count 213 thou/uL (130-400); RBC Distribution Width 12.9 % (11.5-14.5); Red Blood Cell (RBC) Count 4.99 mill/uL (4.70-6.10); White Blood Cell (WBC) Count 8.7 thou/uL (4.8-10.8)
[2019-01-25 22:29] LABS: ALT (SGPT) 32 U/L (8-55); AST (SGOT) 25 U/L (5-34); Albumin 4.6 g/dL (3.4-4.8); Alkaline Phosphatase 68 U/L (40-150); Anion Gap 17 mmol/L (10-20); BUN (Urea Nitrogen) 18 mg/dL (8.4-25.7); Bilirubin, Total 0.4 mg/dL (0.2-1.2); Calc. Creatinine Clearance 0 mL/min (70-130); Carbon Dioxide 22 mmol/L (23-31); Chloride 102 mmol/L (98-107); Estimated GFR-MDRD 81; Globulin 3.1 g/dL (2.4-3.5); Glucose 172 mg/dL (80-115); Potassium 4.4 mmol/L (3.5-5.1); Protein, Total 7.7 g/dL (5.8-8.1); Sodium 137 mmol/L (136-145)
[2019-01-25 22:45] LABS: Bilirubin Moderate (Negative); Blood, Urine Large (Negative); Glucose, Urine (Dipstick) Negative (Negative); Leukocyte Negative (Negative); Nitrite Negative (Negative); Protein, Urine (Dipstick) > or equal to 300 mg/dL (Neg-Trace)
[2019-01-25 22:46] LABS: Clarity Turbid (Clear)
[2019-01-25 22:51] LABS: Bacteria/HPF Rare-Few HPF (None Seen); Crystals/HPF 2+ AMORPH URATES HPF (Negative); RBC/HPF Greater than 50 HPF (0-3); Squamous Epithelial 0-3 HPF (0-3)
== END 2019-01-25 23:25 | disposition home or self-care (01) ==
LOC: ERS 21:08
DX: R31.9 Hematuria, unspecified (principal); E11.9 Type 2 diabetes mellitus without complications; I10 Essential (primary) hypertension; J44.9 Chronic obstructive pulmonary disease, unspecified; F17.200 Nicotine dependence, unspecified, uncomplicated; Z79.51 Long term (current) use of inhaled steroids; Z79.84 Long term (current) use of oral hypoglycemic drugs; Z79.899 Other long term (current) drug therapy
CPT/HCPCS: 36415; 80053; 81003; 81015; 85025; 86850; 86900; 86901; 87086

== ENCOUNTER 2020-12-02 14:32 | Outpatient (CLI) | payer OTHER | END 2020-12-02 14:33 | disposition home or self-care (01) | LOC: BICCT 14:32 | DX: Z12.2 Encounter for screening for malignant neoplasm of respiratory organs (principal); J43.9 Emphysema, unspecified | CPT/HCPCS: 71271 ==

== ENCOUNTER 2021-12-31 13:03 | Outpatient (CLI) | payer OTHER | END 2021-12-31 13:04 | disposition home or self-care (01) | LOC: BICCT 13:03 | DX: Z12.2 Encounter for screening for malignant neoplasm of respiratory organs (principal); F17.201 Nicotine dependence, unspecified, in remission; J43.9 Emphysema, unspecified; I25.10 Atherosclerotic heart disease of native coronary artery without angina pectoris | CPT/HCPCS: 71271 ==

== ENCOUNTER 2022-07-08 21:06 | Inpatient (IN) | payer OTHER ==
[2022-07-08 21:52] LABS: #Basophils 0.1 thou/uL (0.0-0.2); #Eosinphils 0.1 thou/uL (0.0-0.7); #Lymphocytes 1.5 thou/uL (1.20-3.40); #Neutrophils 10.5 thou/uL (1.40-6.50); %Basophils 0.5 % (0.0-1.0); %Eosinophils 0.7 % (0.0-10.0); %Lymphocytes 11.1 % (21.0-51.0); %Monocytes 7.3 % (0.0-10.0); %Neutrophils 80.3 % (42.0-75.0); Hemoglobin 14.4 g/dL (14.0-18.0); Mean Corpuscular HGB CONC 32.6 g/dL (32.0-36.0); Mean Corpuscular Hemoglobin 28.9 pg (27.0-31.0); Mean Corpuscular Volume 88.7 fl (78.0-98.0); Mean Platelet Volume 8.1 fL (7.4-10.4); Platelet Count 232 10x3/uL (130-400); RBC Distribution Width 12.9 % (11.5-14.5)
[2022-07-08 22:11] LABS: ALT (SGPT) 15 U/L (8-55); AST (SGOT) 17 U/L (5-34); Albumin 4.3 g/dL (3.4-4.8); Alkaline Phosphatase 73 U/L (40-110); Anion Gap 16 mmol/L (10-20); BUN (Urea Nitrogen) 21 mg/dL (8.4-25.7); Bilirubin, Total 0.3 mg/dL (0.2-1.2); Calc. Creatinine Clearance 0 mL/min (70-130); Calcium 9.6 mg/dL (7.8-10.44); Carbon Dioxide 25 mmol/L (23-31); Chloride 106 mmol/L (98-107); Estimated GFR 70; Globulin 2.9 g/dL (2.4-3.5); Glucose 131 mg/dL (80-115); Potassium 4.2 mmol/L (3.5-5.1); Protein, Total 7.2 g/dL (5.8-8.1); Sodium 143 mmol/L (136-145)
[2022-07-08] MEDS ORDERED: Dextrose 50% Abboject 50 ML SYRINGE SLOW IVP PRN (23:29)
[2022-07-08] MEDS ORDERED: Ondansetron PF 4 MG/2 ML Vial IVP PRN (23:29)
[2022-07-08] MEDS ORDERED: Acetaminophen 325 MG TAB PO PRN (23:29)
[2022-07-08] MEDS ORDERED: Ondansetron ODT 4 MG TAB PO PRN (23:29)
[2022-07-08] MEDS ORDERED: Acetaminophen 650 MG Suppository PR PRN (23:29)
[2022-07-08] MEDS ORDERED: Dextrose 5% in Water 1,000 ML IV PRN (23:29)
[2022-07-08] MEDS ORDERED: HumaLOG 300 UNITS/3 ML VIAL SC PRN (23:29)
[2022-07-08] MEDS ORDERED: Nitroglycerin 4.9 GM Bottle SL PRN (23:54)
[2022-07-09 01:01] LABS: SARS-CoV-2 NAA Rapid Test Not Detected (NotDetected)
[2022-07-09] MEDS ORDERED: methylPREDNISolone Sod Succ 40 MG VIAL ONE (01:28)
[2022-07-09] MEDS: methylPREDNISolone Sod Succ 40 MG VIAL IVP SCH ×2 (01:40→23:50)
[2022-07-09 01:59] LABS: Troponin I Less than 0.010 ng/mL (< 0.028)
[2022-07-09] MEDS: Doxycycline 100 MG in Sodium Chloride 0.9% 100 ML IVPB SCH ×2 (03:07→16:39)
[2022-07-09 04:48] LABS: #Eosinphils 0.1 thou/uL (0.0-0.7); #Lymphocytes 0.9 thou/uL (1.20-3.40); #Monocytes 0.2 thou/uL (0.11-0.59); #Neutrophils 10.9 thou/uL (1.40-6.50); %Basophils 0.4 % (0.0-1.0); %Eosinophils 0.8 % (0.0-10.0); %Lymphocytes 7.2 % (21.0-51.0); %Monocytes 1.6 % (0.0-10.0); %Neutrophils 90.1 % (42.0-75.0); Hemoglobin 14.2 g/dL (14.0-18.0); Mean Corpuscular HGB CONC 33.4 g/dL (32.0-36.0); Mean Corpuscular Hemoglobin 29.3 pg (27.0-31.0); Mean Corpuscular Volume 87.8 fl (78.0-98.0); Mean Platelet Volume 8.3 fL (7.4-10.4); Platelet Count 189 10x3/uL (130-400); RBC Distribution Width 12.9 % (11.5-14.5); Red Blood Cell (RBC) Count 4.86 mill/uL (4.70-6.10); White Blood Cell (WBC) Count 12.1 10x3/uL (4.8-10.8)
[2022-07-09 05:10] LABS: Anion Gap 15 mmol/L (10-20); BUN (Urea Nitrogen) 20 mg/dL (8.4-25.7); Calc. Creatinine Clearance 0 mL/min (70-130); Calcium 9.2 mg/dL (7.8-10.44); Carbon Dioxide 21 mmol/L (23-31); Chloride 108 mmol/L (98-107); Estimated GFR 91; Glucose 79 mg/dL (80-115); Potassium 4.1 mmol/L (3.5-5.1); Sodium 140 mmol/L (136-145)
[2022-07-09 05:13] LABS: Troponin I Less than 0.010 ng/mL (< 0.028)
[2022-07-09] MEDS ORDERED: Enoxaparin Sodium 60 MG/0.6 ML SYRINGE ONE (08:28)
[2022-07-09] MEDS ORDERED: Aspirin Chewable 81 MG TAB ONE (08:28)
[2022-07-09] MEDS ORDERED: Metoprolol Tartrate 50 MG TAB ONE (08:29)
[2022-07-09] MEDS: Aspirin 81 mg Enteric Coated Tablet PO SCH (08:43)
[2022-07-09] MEDS: Metoprolol Tartrate 25 MG TAB PO SCH ×2 (08:44→20:05)
[2022-07-09] MEDS: Losartan 25 MG TAB PO SCH (08:45)
[2022-07-09] MEDS ORDERED: Enoxaparin Sodium 60 MG/0.6 ML SYRINGE SC SCH (09:00)
[2022-07-09] MEDS ORDERED: Rivaroxaban 2.5 MG TAB PO SCH ×2 (10:00→21:00)
[2022-07-09] MEDS ORDERED: NIFEdipine XL 30 MG TAB PO SCH (10:00)
[2022-07-09] MEDS ORDERED: NIFEdipine XL 30 MG TAB ONE (10:14)
[2022-07-09 15:47] VITALS: BMI 22.1
[2022-07-09] MEDS: Mometasone/Formoterol 60 PUFF AER INH SCH (19:25)
[2022-07-09] MEDS ORDERED: Atorvastatin Calcium 20 MG TAB PO SCH (21:00)
[2022-07-09] MEDS: Fluticasone Propionate Nasal Spray 16 gm Bottle NASAL SCH (21:36)
[2022-07-09] MEDS: Rivaroxaban 2.5 MG TAB PO SCH (21:36)
[2022-07-10] MEDS: Doxycycline 100 MG in Sodium Chloride 0.9% 100 ML IVPB SCH (03:48)
[2022-07-10 04:54] LABS: #Lymphocytes 0.6 thou/uL (1.20-3.40); #Monocytes 0.2 thou/uL (0.11-0.59); #Neutrophils 10.2 thou/uL (1.40-6.50); %Eosinophils 0.2 % (0.0-10.0); %Lymphocytes 5.8 % (21.0-51.0); %Monocytes 1.5 % (0.0-10.0); %Neutrophils 92.5 % (42.0-75.0); Hemoglobin 13.6 g/dL (14.0-18.0); Mean Corpuscular HGB CONC 32.3 g/dL (32.0-36.0); Mean Corpuscular Volume 89.7 fl (78.0-98.0); Mean Platelet Volume 9.4 fL (7.4-10.4); Platelet Count 183 10x3/uL (130-400); RBC Distribution Width 13.2 % (11.5-14.5); Red Blood Cell (RBC) Count 4.69 mill/uL (4.70-6.10)
[2022-07-10 05:16] LABS: Anion Gap 16 mmol/L (10-20); BUN (Urea Nitrogen) 28 mg/dL (8.4-25.7); Calc. Creatinine Clearance 58 mL/min (70-130); Calcium 9.6 mg/dL (7.8-10.44); Carbon Dioxide 21 mmol/L (23-31); Chloride 106 mmol/L (98-107); Estimated GFR 70; Glucose 283 mg/dL (80-115); Potassium 4.6 mmol/L (3.5-5.1); Sodium 138 mmol/L (136-145)
[2022-07-10] MEDS: HumaLOG 300 UNITS/3 ML VIAL SC PRN ×2 (06:49→10:39)
[2022-07-10] MEDS: Mometasone/Formoterol 60 PUFF AER INH SCH (07:54)
[2022-07-10] MEDS: Aspirin 81 mg Enteric Coated Tablet PO SCH (08:26)
[2022-07-10] MEDS: Metoprolol Tartrate 25 MG TAB PO SCH (08:26)
[2022-07-10] MEDS: Losartan 25 MG TAB PO SCH (08:27)
[2022-07-10] MEDS: Rivaroxaban 2.5 MG TAB PO SCH (08:28)
[2022-07-10] MEDS: Fluticasone Propionate Nasal Spray 16 gm Bottle NASAL SCH (08:29)
[2022-07-10] MEDS ORDERED: Empagliflozin 25 MG TAB PO SCH (09:00)
[2022-07-10] MEDS ORDERED: NIFEdipine XL 30 MG TAB PO SCH ×2 (09:00)
[2022-07-10] MEDS ORDERED: Insulin Glargine 30 UNITS/0.3 ML VIAL SC SCH (09:00)
[2022-07-10] MEDS ORDERED: FLU VACC QS2022-23(65YR UP)/PF 240 MCG/0.7 ML SYRINGE IM ONE (09:00)
[2022-07-10 11:22] VITALS: BP 130/67; TEMP 97.5
== END 2022-07-10 13:24 | disposition home or self-care (01) | DRG 309 ==
LOC: ERS 21:06 → ERHOLD 23:16 → 2SW 07-09 15:28 → OBSVTOIN 07-09 15:32
PROVIDERS: ADMIT Student in an Organized Health Care Education/Training Program; ATTEND Nurse Practitioner Acute Care
DX: I48.91 Unspecified atrial fibrillation (principal); J44.1 Chronic obstructive pulmonary disease with (acute) exacerbation; E11.51 Type 2 diabetes mellitus with diabetic peripheral angiopathy without gangrene; R07.89 Other chest pain; E78.5 Hyperlipidemia, unspecified; I25.10 Atherosclerotic heart disease of native coronary artery without angina pectoris; R09.02 Hypoxemia; Z95.5 Presence of coronary angioplasty implant and graft; Z79.899 Other long term (current) drug therapy; Z79.4 Long term (current) use of insulin; Z79.82 Long term (current) use of aspirin; Z79.84 Long term (current) use of oral hypoglycemic drugs; Z87.891 Personal history of nicotine dependence
CPT/HCPCS: 36415; 36416; 71045; 72040; 80048; 80053; 83880; 84484; 85025; 93005; 94640; G0378; J1650; J1815; J2920; J3490; J7620; U0002

== ENCOUNTER 2023-07-22 13:33 | Outpatient (CLI) | payer OTHER | END 2023-07-22 13:34 | disposition home or self-care (01) | LOC: RAD 13:33 | PROVIDERS: ATTEND Internal Medicine Critical Care Medicine | DX: R06.00 Dyspnea, unspecified (principal) | CPT/HCPCS: 71046 ==

== ENCOUNTER 2023-08-08 17:00 | Outpatient (CLI) | payer OTHER | END 2023-08-08 17:01 | disposition home or self-care (01) | LOC: SLEEPLAB 17:00 | PROVIDERS: ATTEND Internal Medicine Critical Care Medicine | DX: G47.33 Obstructive sleep apnea (adult) (pediatric) (principal); R53.83 Other fatigue; R06.83 Snoring; J44.9 Chronic obstructive pulmonary disease, unspecified; G47.10 Hypersomnia, unspecified; E11.9 Type 2 diabetes mellitus without complications; I25.10 Atherosclerotic heart disease of native coronary artery without angina pectoris; I10 Essential (primary) hypertension; G47.00 Insomnia, unspecified; I49.3 Ventricular premature depolarization | CPT/HCPCS: 95810 ==

== ENCOUNTER 2023-08-30 07:53 | Outpatient (CLI) | payer OTHER ==
[2023-08-30] MEDS ORDERED: Iopamidol-370 76% 500 ML MDV (1 ML CHARGE) ONE (10:49)
== END 2023-08-30 07:54 | disposition home or self-care (01) ==
LOC: BICCT 07:53
DX: N39.0 Urinary tract infection, site not specified (principal); J43.2 Centrilobular emphysema; M89.9 Disorder of bone, unspecified; R93.429 Abnormal radiologic findings on diagnostic imaging of unspecified kidney
CPT/HCPCS: 74178; 82565

== ENCOUNTER 2025-02-26 07:22 | Outpatient (CLI) | payer OTHER ==
[2025-02-26 08:02] LABS: Estimated GFR - POC 80.0
[2025-02-26] MEDS ORDERED: Iopamidol 370 76% 100 ML VIAL ONE (09:52)
== END 2025-02-26 07:23 | disposition home or self-care (01) ==
LOC: CT 07:22
PROVIDERS: ATTEND Internal Medicine Critical Care Medicine
DX: R91.8 Other nonspecific abnormal finding of lung field (principal)
CPT/HCPCS: 36415; 71260; 82565; Q9967

== ENCOUNTER 2025-04-23 12:28 | Outpatient (CLI) | payer OTHER ==
[~2025-04-23 12:28] MED LIST: Iopamidol 370 76% 100 ML VIAL ONE
[2025-04-23 14:11] LABS: Estimated GFR - POC 80.0
== END 2025-04-23 12:29 | disposition home or self-care (01) ==
LOC: ULT 12:28
DX: I73.9 Peripheral vascular disease, unspecified (principal); R16.0 Hepatomegaly, not elsewhere classified; I70.8 Atherosclerosis of other arteries; I77.1 Stricture of artery
CPT/HCPCS: 36415; 75635; 82565; 93922; Q9967